=== PATIENT | female | born 1995 ===

== ENCOUNTER 2021-05-03 13:03 | Emergency (ER) | payer OTHER ==
[~2021-05-03] VITALS: Ht 170.2 cm; Wt 54.9 kg
[2021-05-03] MEDS ORDERED: MUPIROCIN1 G1 TOP (16:36)
[2021-05-03] MEDS ORDERED: DUI500 PO (16:36)
[2021-05-03] MEDS ORDERED: TYLENOL325 MG (16:49)
== END 2021-05-03 20:02 | disposition home or self-care (01) ==
LOC: ER 13:03
DX: S60.572A Other superficial bite of hand of left hand, initial encounter (principal); S70.372A Other superficial bite of left thigh, initial encounter; W54.0XXA Bitten by dog, initial encounter; Y93.01 Activity, walking, marching and hiking; Y92.89 Other specified places as the place of occurrence of the external cause; Y99.8 Other external cause status